=== PATIENT | female | born 1975 | race Caucasian/White ===

== ENCOUNTER → 2024-02-24 | Outpatient (CLI) | payer BC, SELFPAY ==
[2024-02-24 10:23] LABS: Vitamin D,25 Hydroxy 37.4 ng/mL
[2024-02-24 10:29] LABS: Ferritin 47 ng/mL (8-252); T4 Free Direct 0.99 ng/dL (0.76-1.46); Thyroid Stim Hormone (TSH) 0.89 uIU/mL (0.358-3.74)
[2024-02-29 11:59] LABS: Anti-Nuclear Antibody Test Positive (.); Thyroid Peroxidase AB < 9 IU/mL (0-34); Vitamin D 1,25-Dihydroxy 37.1 pg/mL (24.8-81.5); Zinc, WHOLE BLOOD 704 ug/dL (440-860)
== END | disposition home or self-care (01) ==
PROVIDERS: PCP Internal Medicine; Referring Provider Dermatology; Visit Provider Dermatology
DX: L63.8 Other alopecia areata (principal); L71.8 Other rosacea
CPT/HCPCS: 36415; 82306; 82652; 82728; 84439; 84443; 84630; 86038; 86376